=== PATIENT | female | born 1985 | race Two or more races ===

== ENCOUNTER 2023-08-23 08:14 | Inpatient (IN) | payer MEDICAID, OTHER, SELFPAY ==
--- NOTE | ~2023-08-23 | CT_ITS ---
EXAMINATION: CT abdomen pelvis w IV con CLINICAL INFORMATION: Reason for Exam Left-sided abdominal pain COMPARISON: No prior CT available for comparison. TECHNIQUE: Multidetector volumetric imaging was performed from the superior aspect of the liver through the pubic symphysis 85 mL Omnipaque 350 injected Sagittal and coronal reformatted images were obtained on the technologist's workstation. This CT examination was performed using dose optimization techniques as appropriate, variously including the following: *Automated exposure control *Adjustment of mA and/or kV according to patient size (this includes techniques or standardized protocols for targeted exams where dose is matched to indication/reason for exam; i.e. extremities or head) *Use of iterative reconstruction technique DLP: 632 mGy-cm FINDINGS: LOWER THORAX: Included lung bases are clear. HEPATOBILIARY: No focal hepatic lesions. No biliary ductal dilatation. GALLBLADDER: Small gallstone. SPLEEN: Spleen is normal in size. PANCREAS: No focal mass or ductal dilatation. STOMACH AND GASTROINTESTINAL TRACT: Stomach is grossly unremarkable. There is no bowel distention or thickening. No CT evidence of appendicitis. ADRENALS: No adrenal nodules. KIDNEYS/URETERS: Left renal hydronephrosis and hydroureter caused by obstructing stone 6 mm lodged approximately at the ureteropelvic junction. Diffuse perinephric fat stranding and delayed contrast nephrographic phase suggesting acute obstruction. Right kidney is normal. URINARY BLADDER: Partially decompressed. PELVIC VISCERA: Unremarkable PERITONEUM: No free air or fluid. LYMPH NODES: No lymphadenopathy. VASCULAR:Abdominal aorta normal in size, no aneurysm found. BONES, ABDOMINAL WALL AND SOFT TISSUES: Age-appropriate changes of the spine and skeletal system, no destructive osteolytic or osteosclerotic bone lesion found CT/CT abdomen pelvis w IV con IMPRESSION: 1. Left renal hydronephrosis and hydroureter caused by obstructing 6 mm stone lodged approximately at the left ureteropelvic junction. There is high degree obstruction evident by diffuse perinephric fat stranding and delayed contrast nephrographic phase. 2. Cholelithiasis.
--- NOTE | ~2023-08-23 | FL_ITS ---
EXAMINATION: XR FLUOROSCOPY WITH IMAGES CLINICAL INFORMATION: Left ureteral stent placement in the retrograde urethrogram COMPARISON: CT abdomen from 08/23/2023 TECHNIQUE: Fluoroscopy Supervised By: Dr. Bertrand Hoang M.D.. Fluoroscopy Time: 15 seconds. Cumulative Dose: 4.78 mGy. Images: 4. FINDINGS: 4 images obtained by C-arm camera and revealed placement of left ureteral stent extending from the collecting system of left kidney towards the left side to the urinary bladder. No hydronephrosis identified and stone visualized at the level proximal left ureter. Identified. FL/FL guidance in OR IMPRESSION: Stent placement on the left
[2023-08-23 08:21] VITALS: BP 166/89; PULSE 99; RESP 16; TEMP 36.3; O2SAT 99; BMI 35.3
[2023-08-23 08:55] LABS: MANUAL DIFF FLAG NO
[2023-08-23 08:56] LABS: Basophils Absolute Auto 0.1 X10*3/uL (0.0-0.2); Basophils Percent Auto 0.4 % (0-2); Eosinophils Absolute Auto 0.3 X10*3/uL (0.0-0.4); Hematocrit 32.5 % (37.0-47.0); Hemoglobin 11.1 g/dl (12.0-16.0); Imm Gran Abs Auto 0.08 X10*3/uL (0.00-0.03); Imm Gran Pct Auto 0.5 % (0.0-0.4); Lymphocytes Absolute Auto 1.7 X10*3/uL (1.2-4.9); Lymphocytes Percent Auto 9.9 % (20-40); Mean Corpuscular HGB Conc 34.2 g/dl (31.0-35.0); Mean Corpuscular Hemoglobin 28.2 pg (27.0-33.0); Mean Corpuscular Volume 82.7 fL (80.0-98.0); Mean Platelet Volume 10.6 fL (9.4-12.3); Monocytes Absolute Auto 1.1 X10*3/uL (0.1-1.2); Monocytes Percent Auto 6.5 % (2-11); Neutrophils Absolute Auto 13.5 x10*3/uL (2.0-8.3); Neutrophils Percent Auto 80.7 % (45-73); Platelet Count 346 X10*3/uL (160-400); Red Blood Count 3.93 X10*6/uL (4.20-5.50); Red Cell Distribution Width 12.9 % (11.0-16.0); White Blood Count 16.7 X10*3/uL (4.8-10.8)
[2023-08-23 09:17] LABS: Anion Gap 12 (12-20); Blood Urea Nitrogen 10 mg/dL (9-16); Calcium 9.2 mg/dL (8.4-10.2); Carbon Dioxide 22 mmol/L (22-29); Chloride 108 mmol/L (96-108); Creatinine Clr Calc Pharmacy 105.7; Estimated Glomerular Filt Rate > 60; Glucose Random 104 mg/dL (60-115); Potassium 4.3 mmol/L (3.3-5.1); Sodium 138 mmol/L (135-145)
--- NOTE | 2023-08-23 09:35 | ED.ABDPAIN ---
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 LMP-07/31 Related Data Allergies Allergy/AdvReac Type Severity Reaction Status Date / Time amoxicillin Allergy Rash Verified 08/23/23 08:22 Review of Systems Review of Systems Pertinent positives and negatives as stated in HPI PMFSH Past Medical History Source: nursing notes reviewed Social History Social History Smoked in Last 30 Days: No Use of substances other than those prescribed or required for medical reasons: No Advance Directives: No Advance Directives Information Provided: No Patient : No Physical Exam ED Vital Signs: Vital Signs - 24 hr 08/23/23 08:21 08/23/23 13:27 Temperature 97.3 F 98.1 F Pulse Rate 99 103 H Respiratory Rate 16 16 Blood Pressure 166/89 H 171/87 H Pulse Oximetry 99 99 Oxygen Delivery Method Room Air Room Air BMI result Body Mass Index 35.3 VITAL SIGNS: Reviewed. GENERAL: Well developed, well nourished, in no acute distress. HEAD: Normocephalic/atraumatic EYES: PERRLA, EOMI EARS: Ext canals without abnormality NOSE: Nares patent bilateral OROPHARYNX: no oral lesions noted, posterior pharynx clear NECK: Supple, no adenopathy LUNGS: Normal breath sounds. No adventitious sounds or accessory muscle use. SpO2<99> CARDIOVASCULAR: Regular rate and rhythm without noted murmurs ABDOMEN: Soft, left flank/lower quadrant pain, non-distended with bowel sounds. MUSCULOSKELETAL: No tenderness, deformities, or effusions noted on gross inspection. EXTREMITIES: No cyanosis, clubbing or edema. SKIN: Inspection of the skin reveals no rashes NEUROLOGIC: Alert and oriented x 4. Strength and sensation to light touch were grossly intact x 4. Medical Decision Making Medical Decision Making [facility] Narrative: 0920; 38-year-old female with history and clinical presentation, DDX: Diverticulitis, low clinical suspicion for obstruction, possible renal colic, pyelonephritis, low clinical suspicion for UTI/ectopic . INTERVENTION: IV fluids, pain medication, antiemetic, antibiotics I reviewed all investigations and hematologic indices are significant for leukocytosis and normocytic anemia without thrombocytopenia. Patient is afebrile. Chemistry indices negative for NOHELIA/electrolyte derangements and beta hCG is undetectable, lactic acid is within normal limits. Urinalysis significant for hematuria and CT scan demonstrates hydronephrosis with impacted stone, 6 mm, with significant perinephric stranding. I discussed case with Urology who accepts the patient for admission/intervention. I discussed the results with the patient at bedside. Differential Diagnosis Differential Diagnoses: The differential diagnosis associated with the presentation includes Please see the discussion above Admission/Observation Consideration of admission/observation: Escalation of care including admission/observation considered Please see the discussion above Consult Healthcare Provider Management of the patient was discussed with: [employer] Please see the discussion Lab Data [facility] Lab Attestation statement: I reviewed the patient's lab results. Please see the discussion above 08/23/23 08:51 08/23/23 08:51 Labs: Lab Results 08/23/23 08/23/23 08/23/23 Range/Units 08:51 09:30 Unknown WBC 16.7 H (4.8-10.8) X10*3/uL RBC 3.93 L (4.20-5.50) X10*6/uL Hgb 11.1 L (12.0-16.0) g/dl Hct 32.5 L (37.0-47.0) % MCV 82.7 (80.0-98.0) fL MCH 28.2 (27.0-33.0) pg MCHC 34.2 (31.0-35.0) g/dl RDW 12.9 (11.0-16.0) % Plt Count 346 (160-400) X10*3/uL MPV 10.6 (9.4-12.3) fL Immature Gran % (Auto) 0.5 H (0.0-0.4) % Neut % (Auto) 80.7 H (45-73) % Lymph % (Auto) 9.9 L (20-40) % [place] % (Auto) 6.5 (2-11) % Eos % (Auto) 2.0 (0-4) % Baso % (Auto) 0.4 (0-2) % Lymph # (Auto) 1.7 (1.2-4.9) X10*3/uL [place] # (Auto) 1.1 (0.1-1.2) X10*3/uL Eos # (Auto) 0.3 (0.0-0.4) X10*3/uL Baso # (Auto) 0.1 (0.0-0.2) X10*3/uL Abs Immat Gran (auto) 0.08 H (0.00-0.03) X10*3/uL Absolute Neuts (auto) 13.5 H (2.0-8.3) x10*3/uL Absolute Nucleated RBC 0.000 (0.0-0.012) X10*3/uL Nucleated RBC % (auto) 0.0 (0.0-0.2) /100WBC Sodium 138 (135-145) mmol/L Potassium 4.3 (3.3-5.1) mmol/L Chloride 108 (96-108) mmol/L Carbon Dioxide 22 (22-29) mmol/L Anion Gap 12 (12-20) BUN 10 (9-16) mg/dL Creatinine 0.72 (0.5-1.4) mg/dL Estim Creat Clear Calc 105.7 Estimated GFR > 60 Random Glucose 104 (60-115) mg/dL Lactic Acid 1.2 (0.5-2.0) mmol/L Calcium 9.2 (8.4-10.2) mg/dL Beta HCG, Quant < 2 mIU/mL Urine Color Yellow Urine Appearance Clear Urine pH 8.0 (5.0-9.0) Ur Specific [place] 1.015 (1.005-1.025) Urine Protein Negative (Neg-Trace) mg/dL Urine Glucose (UA) Negative (Negative) mg/dL Urine Ketones Negative (Negative) mg/dL Urine Blood Small (1+) H (Negative) Urine Nitrite Negative (Negative) Ur Leukocyte Esterase Negative (Negative) Urine RBC >20 H (0-2) /HPF Urine WBC 0-5 (0-5) /HPF Ur Squamous Epith Cells 0-2 (0-2) /HPF Urine Bacteria None Seen (None Seen) Hyaline Casts 0-2 (0-2) /LPF Urine Test NEGATIVE (NEGATIVE) Radiology Impression Discussion of test interpretation with radiology: I have reviewed the radiologist's reading. Radiologist Impression: Please see the discussion above Medications Administered Discontinued Medications Generic Name Dose Route Start Last Admin Trade Name Freq PRN Reason Stop Dose Admin Fentanyl 25 mcg 08/23/23 13:13 08/23/23 13:26 Fentanyl Citrate/Pf 100 Mcg/2 Ml Vial IVPUSH 08/23/23 13:14 25 mcg ONCE ONE Administration Protocol Sodium Chloride 1,000 mls @ 999 mls/hr 08/23/23 10:15 08/23/23 12:15 Ns IV 08/23/23 11:15 Infused .Q1H1M SANKET Infusion Ceftriaxone Sodium 1 gm/ 50 mls @ 100 mls/hr 08/23/23 11:02 08/23/23 11:45 Sodium Chloride IV 08/23/23 11:31 Infused ONCE ONE Infusion Iohexol 100 ml 08/23/23 11:26 08/23/23 11:26 Iohexol 350 Mg/Ml 100 Ml Infus..Btl IV 08/23/23 11:27 85 ml ONCE ONE Administration Ketorolac Tromethamine 15 mg 08/23/23 10:12 08/23/23 10:35 Ketorolac Tromethamine 30 Mg/Ml Vial IVPUSH 08/23/23 10:13 15 mg ONCE ONE Administration Ondansetron HCl 4 mg 08/23/23 10:12 08/23/23 10:35 Ondansetron Hcl 4 Mg/2 Ml Vial IVPUSH 08/23/23 10:13 4 mg ONCE ONE Administration Critical Care Time Critical Care Time Critical Care Time: Yes Total Critical Care Time: 45 Attestation: I personally attest to this time spent taking care of the patient. Discharge Plan Discharge Clinical Impression: Sepsis, Pyelonephritis, Hydronephrosis, Ureterolithiasis Patient Disposition: Admitted As Inpatient Print Language: [place]
[2023-08-23 09:37] LABS: Lactic Acid 1.2 mmol/L (0.5-2.0)
[2023-08-23 09:39] LABS: Appearance Urine Clear; Color Urine Yellow; Glucose Urine UA Negative (Negative); Leukocyte Esterase Urine Negative (Negative); Nitrite Urine Negative (Negative); Specific Gravity - Urine 1.015 (1.005-1.025); UMIC TRIGGER UACC YES; Urine Blood Small (1+) (Negative); Urine Ketones Negative (Negative); Urine Protein Negative (Neg-Trace)
[2023-08-23 09:40] LABS: HCG Quantitative < 2 mIU/mL
[2023-08-23 09:43] LABS: Bacteria Urine None Seen (None Seen); Hyaline Casts Urine 0-2 /LPF (0-2); RBC Urine >20 /HPF (0-2); Squamous Epithelial Cell Urine 0-2 /HPF (0-2); WBC Urine 0-5 /HPF (0-5)
[2023-08-23 10:07] LABS: UPreg QC Valid YES; Urine Pregnancy NEGATIVE (NEGATIVE)
[2023-08-23] MEDS: 0.9 % Sodium Chloride 1,000 ML 999 ML IV (10:35)
[2023-08-23] MEDS: ondansetron HCL 4 MG/2 ML VIAL IVPUSH (10:35)
[2023-08-23] MEDS: Ketorolac Tromethamine 30 MG/ML VIAL 15 MG IVPUSH (10:35)
--- NOTE | 2023-08-23 10:42 | PC.NURSE ---
IV inserted, labs previously drawn, pt medicated per order, ivf running per order, call ochoa within reach, family at bedside, will continue to monitor
[2023-08-23] MEDS: cefTRIAXone sodium 1 GM in 0.9 % Sodium Chloride 50 ML IV (11:08)
--- NOTE | 2023-08-23 11:09 | PC.NURSE ---
pt medicated with antibiotics per order
[2023-08-23] MEDS: iohexoL 350 MG/ML 100 ML INFUS..BTL IV (11:26)
--- NOTE | 2023-08-23 11:52 | PC.NURSE ---
pt returned from CT scan fluids running per order
[2023-08-23] MEDS: fentaNYL citrate/PF 100 MCG/2 ML VIAL 25 MCG IVPUSH (13:26)
[2023-08-23 13:27] VITALS: BP 171/87; PULSE 103; RESP 16; TEMP 36.7; O2SAT 99
--- NOTE | 2023-08-23 13:32 | PC.NURSE ---
pt a&ox3, vss, pt ambulated independently with steady gait to bathroom, pt medicated for 9/10 lt flank pain per order, call ochoa within reach, will continue to monitor
--- NOTE | 2023-08-23 15:22 | PHA.MEDREC ---
Pharmacy Consult ? Medication Reconciliation Pharmacy has completed the medication reconciliation. Picture Copyist services used, patient only reports taking cetirizine as needed for allergies
[2023-08-23 16:59] VITALS: BP 150/92; PULSE 94; RESP 18; TEMP 37.3; O2SAT 98
--- NOTE | 2023-08-23 18:51 | P.HPGS_ITS ---
History of Present Illness History of Present Illness Date of Service: 08/23/23 Chief complaint: UPJ stone Narrative: Sima Leiva is a 38 year old female Repeat visit to emergency room with history of left upper quadrant pain Started on Wednesday and resolved at home but has reoccurred with greater intensity No aggravating relieving factors Pain to 7 or 8/10 Associated nausea but no vomiting, fever or chills No prior diagnosis of kidney stones Lab work shows creatinine 0.72, calcium 9.2, WBC 16.7, UA small blood, negative test Imaging - CT Left renal hydronephrosis and hydroureter caused by obstructing stone 6 mm lodged approximately at the ureteropelvic junction Based on clinical picture and imaging suggest admission with stent placement as add on case tomorrow Review of Systems Constitutional: Constitutional: Reports as per HPI and Reports no additional constitutional complaints Cardiovascular: Cardiovascular: Reports as per HPI and Reports no additional cardiovascular complaints Respiratory: Respiratory: Reports as per HPI and Reports no additional respiratory complaints Gastrointestinal: Gastrointestinal: Reports as per HPI and Reports no additional gastrointestinal complaints Genitourinary: Genitourinary: Reports as per HPI Musculoskeletal: Musculoskeletal: Reports no additional musculoskeletal complaints and Reports as per HPI Neurologic: Reports system reviewed and no additional complaints, except as documented and Reports as per HPI [facility] Social History Social History Smoked in Last 30 Days: No Use of substances other than those prescribed or required for medical reasons: No Advance Directives: No Advance Directives Information Provided: No Patient : No Meds Allergies Allergy/AdvReac Type Severity Reaction Status Date / Time amoxicillin Allergy Rash Verified 08/23/23 08:22 Active Medications: Current Medications Acetaminophen (Acetaminophen 325 Mg Tablet) 975 mg PO TID SANKET Sodium Chloride (Ns) 1,000 mls @ 100 mls/hr IVCONT .Q10H SANKET Ketorolac Tromethamine (Ketorolac Tromethamine 15 Mg/Ml Vial) 15 mg IV Q6H SANKET Morphine Sulfate (Morphine Sulfate 4 Mg/Ml Cartridge) 3 mg IVPUSH Q3H PRN; Protocol PRN Reason: Pain, Moderate(Pain Scale 4-6) Oxycodone HCl (Oxycodone Hcl Immed Release 5 Mg Tablet) 5 mg PO Q6H PRN PRN Reason: Pain, Severe (Pain Scale 7-10) Sodium Chloride (0.9 % Sodium Chloride Flush 3 Ml Syringe) 3 ml IVFLUSH QSHIFT [facility] Home Medications ?Medication ?Instructions ?Recorded ?Confirmed ?Last Taken ?Type cetirizine 10 mg tablet 10 mg PO DAILY PRN Allergy Symptoms 08/23/23 08/23/23 Unknown History Physical Exam Vital Signs: Vital Signs: Last Vital Signs Temp 99.1 F 08/23/23 16:59 Pulse 94 08/23/23 16:59 Resp 18 08/23/23 16:59 BP 150/92 H 08/23/23 16:59 Pulse Ox 98 08/23/23 16:59 O2 Del Method Room Air 08/23/23 16:59 BMI result Body Mass Index 35.3 Const: General: cooperative, healthy appearing, comfortable and no acute distress Orientation/consciousness: patient oriented x3 HEENT: Face and sinus: Yes normal facial exam Mouth: moist mucous membranes Neck: Neck: Yes normal visual inspection, Yes full ROM and Yes trachea midline Chest: Chest palpation & inspection: normal inspection of the chest Resp: Effort & Inspection: normal respiratory effort, able to speak in complete sentences and no respiratory distress GI: Inspection: Yes normal to inspection Back/Spine/Pelvis: Cervical Spine: normal cervical lordosis Thoracic/Lumbar Spine: thoracic and lumbar spine normal to inspection Skin: General skin exam: no rashes or lesions noted Neuro: General: patient oriented x3, tone normal and moves all extremities Extrem: General: Yes normal to inspection and Yes capillary refill normal Results Results Labs: Short CBC 08/23/23 Range/Units 08:51 WBC 16.7 H (4.8-10.8) X10*3/uL Hgb 11.1 L (12.0-16.0) g/dl Hct 32.5 L (37.0-47.0) % Plt Count 346 (160-400) X10*3/uL BMP 08/23/23 08:51 Sodium 138 Potassium 4.3 Chloride 108 Carbon Dioxide 22 BUN 10 Creatinine 0.72 Calcium 9.2 Urine 08/23/23 08/23/23 Range/Units 09:30 Unknown Urine Color Yellow Urine Appearance Clear Urine pH 8.0 (5.0-9.0) Ur Specific [place] 1.015 (1.005-1.025) Urine Protein Negative (Neg-Trace) mg/dL Urine Glucose (UA) Negative (Negative) mg/dL Urine Test NEGATIVE (NEGATIVE) Assessment and Plan (1) Ureterolithiasis: Status: Acute (2) Hydronephrosis: Qualifiers: Hydronephrosis type: with renal calculous obstruction Qualified Code(s): N13.2 - Hydronephrosis with renal and ureteral calculous obstruction Status: Acute Plan Admission with procedure tomorrow Risks, benefits and alternatives to therapy were discussed. These include but are not limited to infection, bleeding, damage to local organs and tissues, need for further interventions. Anesthetic risks regarding cardiac arrhythmia, blood clots, and potential mortality were discussed. The patient understands the typical recovery time and the outpatient nature of the procedure. After consideration of these risks the patient gives full informed consent and they wish to move ahead with the procedure. - cystoscopy, left retrograde, left stent placement Quality Stroke Does the patient have a stroke diagnosis?: No VTE Prior VTE?: No VTE Risk Level:: Surgical - low VTE Device Contraindication: Treatment Not Indicated VTE Drug Contraindication: Treatment Not Indicated Procedures Date of Service Date of Service: 08/23/23
[2023-08-23 19:38] VITALS: BP 140/87; PULSE 98; RESP 18; TEMP 37.3; O2SAT 98
--- NOTE | 2023-08-23 19:39 | MHC.EDTECH ---
This tech took over care of patent at 1900,hourly rounds and vitals completed patient is resting comfortably,call ochoa in reach
[2023-08-23] MEDS: Ketorolac Tromethamine 15 MG/ML VIAL IVPUSH (19:52)
[2023-08-23] MEDS: 0.9 % Sodium Chloride 1,000 ML 100 ML IVCONT (19:52)
[2023-08-23] MEDS: Acetaminophen 325 MG TABLET 975 MG PO (19:55)
[2023-08-23 22:09] VITALS: BP 114/77; PULSE 93; RESP 18; TEMP 37.1; O2SAT 98
--- NOTE | 2023-08-23 22:09 | MHC.EDTECH ---
Hourly rounds and vitals completed,patient is resting at this time call ochoa in reach
[2023-08-23 23:39] VITALS: BP 159/89; PULSE 88; RESP 18; TEMP 37.1; O2SAT 97
--- NOTE | 2023-08-23 23:41 | MHC.EDTECH ---
Hourly rounds and vitals completed,patient was given a jello.apple juice and saltines. call ochoa in reach
[2023-08-24] VITALS (9 sets, daily range): BP systolic 114–140; BP diastolic 64–86; PULSE 72–99; RESP 16–18; TEMP 36.1–37; O2SAT 97–99
[2023-08-24] MEDS: Ketorolac Tromethamine 15 MG/ML VIAL IVPUSH (01:00)
[2023-08-24] MEDS: 0.9 % Sodium Chloride Flush 3 ML SYRINGE IVFLUSH (01:03)
--- NOTE | 2023-08-24 02:09 | MHC.EDTECH ---
Hourly rounds and vitals completed,patient is resting comfortably call ochoa in reach
--- NOTE | 2023-08-24 03:17 | PC.NURSE ---
VSS, no apparent distress noted. Patient medicated per MAR. Currently sleeping, RR 16, even chest wall rise and fall. Call ochoa placed within reach. Monitoring is ongoing.
[2023-08-24] MEDS: 0.9 % Sodium Chloride 1,000 ML 100 ML IVCONT (04:33)
[2023-08-24] MEDS: Acetaminophen 325 MG TABLET 975 MG PO (08:11)
--- NOTE | 2023-08-24 08:14 | PC.NURSE ---
Alert and oriented, declined toradol stating she would like to just take tylenol, mediated per mar.
--- NOTE | 2023-08-24 09:50 | MHC.CM.PN ---
PT REPORTS SHE LIVES ALONE AND IS INDEPENDENT WITH CARE NO DME AND NO SERVICES SHE DOES NOT KNOW THE NAME OR ADDRESS OF HER PCP [facility] [place] IS ALL SHE CAN PROVIDE FOR PCP INFO PT DOES NOT WANT TO COMPLETE A HCP DCP: HOME NO SERVICES RIDE VS LYFT
--- NOTE | 2023-08-24 12:29 | PC.NURSE ---
report given to SSS
--- NOTE | 2023-08-24 13:24 | MHC.SHP ---
Pre-Procedural Eval Section A - 24 Hr Update-Section A only Date of Service: 08/24/23 The patient is an INPATIENT: Yes The patient has been examined within 24 hours of the surgical procedure. The History & Physical has been completed within 30 days and I have reviewed it.: Yes Section B - Complete if H&P > 30 days Chief Complaint: UPJ stone, left Allergies: Allergies Allergy/AdvReac Type Severity Reaction Status Date / Time amoxicillin Allergy Rash Verified 08/23/23 08:22 Plan Diagnosis/Plan: Unchanged I have reviewed the history and physical and performed a pertinent physical examination on my patient. No changes have occurred unless specified. Cystoscopy, left retrograde left ureteral stent possible ureteroscopy laser. Time Spent With Patient Time: Total time managing care of this patient today ____ minutes.
--- NOTE | 2023-08-24 13:47 | HO.ANESPROP2 ---
HPI - Anesthesia Eval Consult details Narrative: 38 F for cysto ureteroscopy stent PMFSH Active Problems Active Problems: All Active Problems Ureterolithiasis (Acute) Hydronephrosis (Acute) Pyelonephritis (Acute) Sepsis (Acute) Family History Family history of problems with anesthesia: No Surgical History History of Problems with Anesthesia: No Social History Social History Patient Tobacco Use Status: Never used Tobacco service: No Meds Allergies Allergy/AdvReac Type Severity Reaction Status Date / Time amoxicillin Allergy Rash Verified 08/23/23 08:22 Active Medications: Current Medications Acetaminophen (Acetaminophen 325 Mg Tablet) 975 mg PO TID [facility] Last Admin: 08/24/23 08:11 Dose: 975 mg Sodium Chloride (Ns) 1,000 mls @ 100 mls/hr IVCONT .Q10H [facility] Last Admin: 08/24/23 04:33 Dose: 100 mls/hr Ketorolac Tromethamine (Ketorolac Tromethamine 15 Mg/Ml Vial) 15 mg IVPUSH Q6H [facility] Last Admin: 08/24/23 08:11 Dose: Not Given Morphine Sulfate (Morphine Sulfate 4 Mg/Ml Cartridge) 3 mg IVPUSH Q3H PRN; Protocol PRN Reason: Pain, Moderate(Pain Scale 4-6) Oxycodone HCl (Oxycodone Hcl Immed Release 5 Mg Tablet) 5 mg PO Q6H PRN PRN Reason: Pain, Severe (Pain Scale 7-10) Sodium Chloride (0.9 % Sodium Chloride Flush 3 Ml Syringe) 3 ml IVFLUSH QSHIFT [facility] Last Admin: 08/24/23 08:12 Dose: Not Given Home Medications ?Medication ?Instructions ?Recorded ?Confirmed ?Last Taken ?Type cetirizine 10 mg tablet 10 mg PO DAILY PRN Allergy Symptoms 08/23/23 08/23/23 Unknown History Exam Height,Weight and Vital Signs: Height 5 ft 1 in Weight 187 lb Last Vital Signs Temp 97.0 F 08/24/23 13:00 Pulse 90 08/24/23 13:00 Resp 18 08/24/23 13:00 BP 140/86 H 08/24/23 13:00 Pulse Ox 97 08/24/23 13:00 O2 Del Method Room Air 08/24/23 13:00 Pertinent Lab Results Pertinent Lab Results: Laboratory Tests 08/23/23 08/23/23 08/23/23 08:51 09:30 Unknown WBC 16.7 H RBC 3.93 L Hgb 11.1 L Hct 32.5 L MCV 82.7 MCH 28.2 MCHC 34.2 RDW 12.9 Plt Count 346 MPV 10.6 Immature Gran % (Auto) 0.5 H Neut % (Auto) 80.7 H Lymph % (Auto) 9.9 L [place] % (Auto) 6.5 Eos % (Auto) 2.0 Baso % (Auto) 0.4 Lymph # (Auto) 1.7 [place] # (Auto) 1.1 Eos # (Auto) 0.3 Baso # (Auto) 0.1 Abs Immat Gran (auto) 0.08 H Absolute Neuts (auto) 13.5 H Absolute Nucleated RBC 0.000 Nucleated RBC % (auto) 0.0 Sodium 138 Potassium 4.3 Chloride 108 Carbon Dioxide 22 Anion Gap 12 BUN 10 Creatinine 0.72 Estim Creat Clear Calc 105.7 Estimated GFR > 60 Random Glucose 104 Lactic Acid 1.2 Calcium 9.2 Beta HCG, Quant < 2 Urine Color Yellow Urine Appearance Clear Urine pH 8.0 Ur Specific [place] 1.015 Urine Protein Negative Urine Glucose (UA) Negative Urine Ketones Negative Urine Blood Small (1+) H Urine Nitrite Negative Ur Leukocyte Esterase Negative Urine RBC >20 H Urine WBC 0-5 Ur Squamous Epith Cells 0-2 Urine Bacteria None Seen Hyaline Casts 0-2 Urine Test NEGATIVE Airway Mallampati Class: III TM Dist: >3cm Neck ROM: Full Loose/Missing/Broken Teeth: No Assessment and Plan Assessment Anesthesia Assessment: Anesthesia Plan Discussed and Chart Reviewed Final Anesthetic Review Family History of Problems with Anesthesia: No History of Problems with Anesthesia: No NPO: Yes ASA Class: II Final Preanesthetic Review: No Changes in Pt Med Stat, Meds/Allgs Chart Reviewed, Consent Obtained/Reviewed and Anes Risks/Benef Reviewed Patient Risk: Low Procedure Risk: Low Anesthetic Plan Anesthetic Plan: GA Disposition: Standard PACU
--- NOTE | 2023-08-24 14:05 | P.OP_ITS ---
Operative Note Operative Note Date of Service: 08/24/23 Narrative: PreOperative Diagnosis:?? Left UPJ stone, left hydronephrosis, obstructive uropathy Post Operative Diagnosis:?? ?Left UPJ stone, left hydronephrosis, obstructive uropathy Procedure: - cystoscopy, left retrograde - left stent insertion, size 6 Portuguese by 24 cm Surgeon:?Dr Ivan Hall Anesthesia:? General Indications for procedure: CT imaging-Left renal hydronephrosis and hydroureter caused by obstructing 6 mm stone lodged approximately at the left ureteropelvic junction, with obstructive uropathy. Procedure: After informed consent was verified the patient was brought to the operating placed on the OR table in supine position.? General Anesthesia was administered per protocol.? The patient was placed in lithotomy position, prepped and draped in the usual sterile fashion.? Safety pause time-out and side of surgery confirmed.? Antibiotics confirmed. A 22 Portuguese cystoscope was inserted transurethrally, The bladder was visualized.? Both ureteric orifices were in normal position. The? left ureteric orifice was cannulated? and a retrograde examination was performed, a filling defect was noted at the UPJ. A hydrophilic guidewire was placed up to the level of the renal pelvis under fluoroscopy. A 6 fr by 24 cm ureteral stent was passed over the guide wire under fluoroscopic guidance. The guide wire was removed. The bladder was emptied.? The rigid cystoscope was removed. ? The patient tolerated the procedure well and was brought to the recovery room in stable condition. Complications: None Drains: Ureteral stent as dictated above
--- NOTE | 2023-08-24 14:14 | PM.DS ---
DS: Providers Provider Date of Service: 08/24/23 Date of admission: 08/23/23 18:50 Date of discharge: 08/24/23 Primary care physician: Unknown Physician Admitting clinician: Bala Woods Attending physician on admission: Bala Woods Attending physician on discharge: Bala Woods Discharging clinician: Ivan Hall DS: Diagnosis Discharge Diagnosis (1) Ureterolithiasis: Status: Acute (2) Hydronephrosis: Status: Acute DS: Summary Hospital Course Hospital Course: 38 year old [place]er-speaking female denies prior history of kidney stones. Presented to the emergency room with complaints of left upper quadrant pain Started on Wednesday and resolved at home but has reoccurred with greater intensity Associated nausea but no vomiting, fever or chills. Lab work shows creatinine 0.72, calcium 9.2, WBC 16.7, UA small blood, negative test. She was admitted for pain management and underwent cystoscopy left ureteral stent insertion. Imaging 08/23/23-- CT Left renal hydronephrosis secondary to obstructing left UPJ stone. Status at Discharge Cognitive/behavioral status at discharge: Stable. At baseline Functional status at discharge: independent ambulation Overall status at discharge: patient is back to baseline Time Attestation Total time managing care of this patient today: 36 mintues. Discharge Coordination Time (in mins): 36 min Quality: Safe Use of Opioids Does Pt have an Active Cancer Diagnosis on the Problem List?: No Quality: Stroke Does the patient have a stroke diagnosis?: No Physical Exam Vital Signs: Vital Signs: Last Vital Signs Temp 97.0 F 08/24/23 13:00 Pulse 90 08/24/23 13:00 Resp 18 08/24/23 13:00 BP 140/86 H 08/24/23 13:00 Pulse Ox 97 08/24/23 13:00 O2 Del Method Room Air 08/24/23 13:00 BMI result Body Mass Index 35.3 DS: Data Data Completed and Pending Labs on day of discharge: Preliminary micro results at discharge 08/23/23 09:24 Blood Culture - Preliminary Blood - Venous No growth after 24 hours. 08/23/23 09:24 Blood Culture - Preliminary Blood - Venous No growth after [address] scan - abdomen: Radiologist's impression: ITS Impressions Abdomen/Pelvis CT 08/23/23 11:44 IMPRESSION: 1. Left renal hydronephrosis and hydroureter caused by obstructing 6 mm stone lodged approximately at the left ureteropelvic junction. There is high degree obstruction evident by diffuse perinephric fat stranding and delayed contrast nephrographic phase. Discharge Plan Discharge Anticipated Discharge Date/Time: 08/24/23 16:25 Patient Disposition: Home, Self-Care Discharge Diagnosis: Left UPJ stone Referrals: Physician,Unknown J [Primary Care Provider] - 1 Week Discharge Medications: New oxycodone-acetaminophen [Percocet] 5-325 mg tablet 1 tab PO Q6H PRN (Reason: pain) Qty: 12 0RF Rx Instructions: Partial Fill upon patient request. Continued cetirizine 10 mg Tablet 10 mg PO DAILY PRN (Reason: Allergy Symptoms) Discharge Orders: Discharge Order (Routine); Ordered 08/24/23 Ordered By: Ivan Hall Diet: Advance to usual diet Activity on Discharge: As tolerated Stand Alone Forms: Patient Portal Discharge page Print Language: [place]er Care Plan Goals: Follow-up with Urology Health Concerns: Status post left ureteral stent. Ureteral stent present. Follow-up with Urology for further stone management Plan of Treatment: Follow-up with Urology for further stone management Assessment: Left nephrolithiasis
== END 2023-08-24 17:15 | disposition home or self-care (01) | DRG 465 ==
LOC: HO.ED 13:09 → HO.EDOVER 18:51 → HO.SSSA 08-24 13:52
PROVIDERS: Urology; Admitting Provider Urology; Emergency Provider Student in an Organized Health Care Education/Training Program; Visit Provider Urology
PROC: 0T778DZ Dilation of Left Ureter with Intraluminal Device, Via Natural or Artificial Opening Endoscopic (ICD-10-PCS; principal; 2023-08-24 13:40)
DX: N13.2 Hydronephrosis with renal and ureteral calculous obstruction (principal)
CPT/HCPCS: 36415; 74177; 80048; 81001; 81025; 83605; 84702; 85025; 87040; 99285; C1769; C2617; J0696; J1100; J1885; J1956; J2250; J2371; J2405; J2704; J3010; Q9967

== ENCOUNTER → 2023-08-23 18:50 | Outpatient (BNV) | payer MEDICAID, SELFPAY | PROVIDERS: Admitting Provider Urology; Emergency Provider Student in an Organized Health Care Education/Training Program; Visit Provider Urology | DX: N13.2 Hydronephrosis with renal and ureteral calculous obstruction (principal) | CPT/HCPCS: 52332; 74420; 99222; 99239 ==

== ENCOUNTER 2023-08-27 09:35 | Outpatient (REF) | payer MEDICAID, OTHER, SELFPAY ==
--- NOTE | ~2023-08-27 | XR_ITS ---
EXAMINATION: XR ABDOMEN KUB CLINICAL INDICATION: Left ureteral stent placed 08/24/2023 Pain with urination after stent placement. COMPARISON: CT abdomen/pelvis 08/23/2023 TECHNIQUE: 2 views of the abdomen. FINDINGS: Imaged lung bases are clear. Portions of the renal shadows are obscured by overlying bowel contents. There are small 4 mm calcifications projecting over the mid right renal shadow. 7 mm calcification projecting over the lower left renal shadow. A left ureteral stent terminates in the urinary bladder. Nonobstructive bowel gas pattern. XR/XR KUB IMPRESSION: Calcifications projecting over the renal shadows. Left ureteral stent terminates in the urinary bladder.
== END 2023-08-27 09:36 | disposition home or self-care (01) ==
LOC: HO.XRAY 09:35
PROVIDERS: PCP Nurse Practitioner; Visit Provider Urology
DX: N20.1 Calculus of ureter (principal)
CPT/HCPCS: 74018

== ENCOUNTER 2023-09-01 05:50 | Day surgery (SDC) | payer MEDICAID, OTHER, SELFPAY ==
--- NOTE | 2023-08-30 13:19 | HO.ANESPROP2 ---
Documented by User: Dayana Guadarrama NP 08/30/23 13:20 HPI - Anesthesia Eval Consult details Narrative: 38yo F for Left Lithotripsy ESW,with stent REMOVAL s/p cysto, stent 07/2023 with GA-LMA 4 PMFSH Active Problems Active Problems: All Active Problems Ureteropelvic junction calculus (Acute) Ureterolithiasis (Acute) Hydronephrosis (Acute) Pyelonephritis (Acute) Sepsis (Acute) Family History Family history of problems with anesthesia: No Surgical History History of Problems with Anesthesia: No Social History Social History Patient Tobacco Use Status: Never used Tobacco Use of substances other than those prescribed or required for medical reasons: No Are you DNR?: No Advance Directives: No Advance Directives Information Provided: Yes service: No Meds Allergies Allergy/AdvReac Type Severity Reaction Status Date / Time amoxicillin Allergy Rash Verified 08/23/23 08:22 oxycodone AdvReac Itching Verified 09/01/23 07:10 Home Medications ?Medication ?Instructions ?Recorded ?Confirmed ?Last Taken ?Type cetirizine 10 mg tablet 10 mg PO DAILY PRN Allergy Symptoms 08/23/23 08/23/23 Unknown History Assessment and Plan Assessment Anesthesia Assessment: Chart Reviewed Final Anesthetic Review Family History of Problems with Anesthesia: No History of Problems with Anesthesia: No Documented by User: Jose Fernandez MD 09/01/23 07:32 PMF Past Medical History Patient : No Social History Social History Patient Tobacco Use Status: Never used Tobacco Use of substances other than those prescribed or required for medical reasons: No Are you DNR?: No Advance Directives: No Advance Directives Information Provided: Yes service: No Meds Allergies Allergy/AdvReac Type Severity Reaction Status Date / Time amoxicillin Allergy Rash Verified 08/23/23 08:22 oxycodone AdvReac Itching Verified 09/01/23 07:10 Home Medications ?Medication ?Instructions ?Recorded ?Confirmed ?Last Taken ?Type cetirizine 10 mg tablet 10 mg PO DAILY PRN Allergy Symptoms 08/23/23 08/23/23 Unknown History Exam Airway Mallampati Class: II TM Dist: <=3cm Neck ROM: Full Loose/Missing/Broken Teeth: No Heart: ok Lungs: ok Assessment and Plan Assessment Anesthesia Assessment: Anesthesia Plan Discussed Final Anesthetic Review NPO: Yes ASA Class: II Final Preanesthetic Review: No Changes in Pt Med Stat, Meds/Allgs Chart Reviewed and Consent Obtained/Reviewed Patient Risk: Low Procedure Risk: Low Anesthetic Plan Anesthetic Plan: GA and Agree w/ Assess. and Plan Disposition: Standard PACU
[2023-09-01] VITALS (7 sets, daily range): BP systolic 113–167; BP diastolic 70–94; PULSE 67–86; RESP 16–18; TEMP 36.1–36.6; O2SAT 95–100; BMI 34.2
--- NOTE | ~2023-09-01 | XR_ITS ---
EXAMINATION: XR ABDOMEN KUB CLINICAL INDICATION: Pre-ESWL. COMPARISON: 08/27/2023 TECHNIQUE: AP view of the abdomen. FINDINGS: A double-J stent is present on the left. An 8 mm calculus is seen in the lower pole of the left kidney similar to prior. 2 smaller rounded calcifications seen overlying the region of the right upper pole the largest measuring around 4 mm. Bowel gas pattern unremarkable. Osseous structures unremarkable. XR/XR KUB IMPRESSION: Bilateral renal calculi. Left-sided double-J stent.
[2023-09-01] MEDS: Lactated Ringers 1,000 ML 100 ML IVCONT (06:44)
[2023-09-01 07:09] LABS: HCG Quantitative < 2 mIU/mL
--- NOTE | 2023-09-01 07:28 | MHC.SHP ---
Pre-Procedural Eval Section A - 24 Hr Update-Section A only Date of Service: 09/01/23 The patient is an INPATIENT: No The patient has been examined within 24 hours of the surgical procedure. The History & Physical has been completed within 30 days and I have reviewed it.: Yes Section B - Complete if H&P > 30 days Chief Complaint: Left renal stone, hydro, s/p ureteral stent Allergies: Allergies Allergy/AdvReac Type Severity Reaction Status Date / Time amoxicillin Allergy Rash Verified 08/23/23 08:22 oxycodone AdvReac Itching Verified 09/01/23 07:10 Plan Diagnosis/Plan: Unchanged I have reviewed the history and physical and performed a pertinent physical examination on my patient. No changes have occurred unless specified. Left ESWL. Stent removal. Discussed risks to include but not limited to, blood in the urine, bruising to the skin, kidney hematoma, possible need for another procedure if a stone fragment obstructs the ureter while passing, possible need to repeat procedure if stone is not completely fragmented. Certified intensive care unit registered nurse present. Time Spent With Patient Time: Total time managing care of this patient today ____ minutes.
--- NOTE | 2023-09-01 08:40 | W.PM.OPN ---
Operative Note Operative Note Date of Service: 09/01/23 Narrative: PreOperative Diagnosis:? ? Right Renal stone, ureteral stent present Post Operative Diagnosis:? Right? Renal stone, ureteral stent present Procedure:? Right? ESWL, cystoscopy stent removal Surgeon:?Dr Ivan Hall Anesthesia:? General Disposible Flexible Cystoscope Used Indications for procedure: The patient understands there is a risk of bruising or hematoma to the kidney, infection, and stone migration following the procedure and subsequent intervention may be required.? - Imaging 7 by 5 mm right renal stone Procedure: After informed consent was verified the patient was brought to the operating room and placed in a supine position.? Anesthesia was performed per protocol. Safety pause time-out was performed. Imaging was displayed in the room and laterality confirmed. ESWL was performed.?The stone was visualized on both fluoroscopy and ultrasound.? Shockwave lithotripsy was performed, with a maximum rate of 120 hertz. After the first 300 shocks a pause for 3 minutes was completed.? The power was titrated up to 18 and then after 1650 shocks were completed, maximum power was increased to 20. Total of 2500 shocks, a maximum rate of 120 hertz.? Good fragmentation of the stone was appreciated. The patient was repositioned, the genitalia was prepped, the disposable flexible cystoscope was passed into the bladder the stent was visualized and using a grasper the stent was removed without difficulty. The patient tolerated the procedure well and was transferred to the recovery area upon completion. Complications: None
== END 2023-09-01 10:25 | disposition home or self-care (01) ==
PROVIDERS: Anesthesiology; Visit Provider Urology
PROC: (CPT 50590; principal; 2023-09-01 07:30)
DX: N20.0 Calculus of kidney (principal); Z96.0 Presence of urogenital implants; Z88.0 Allergy status to penicillin
CPT/HCPCS: 50590; 36415; 74018; 84702; J0131; J0690; J1940; J2704; J3010

== ENCOUNTER → 2023-09-01 05:50 | Outpatient (BNV) | payer MEDICAID, SELFPAY | PROVIDERS: Visit Provider Urology | DX: N20.0 Calculus of kidney (principal); Z96.0 Presence of urogenital implants | CPT/HCPCS: 50590; 52310 ==